=== PATIENT | male | born 1980 | race Caucasian/White ===

== ENCOUNTER 2023-02-21 08:47 | Outpatient (CLI) | payer OTHER, SELFPAY | END 2023-02-21 08:48 | disposition home or self-care (01) | LOC: LONREF 08:50 | PROVIDERS: PCP Family Medicine; Visit Provider Family Medicine | DX: Z00.00 Encounter for general adult medical examination without abnormal findings (principal); Z13.6 Encounter for screening for cardiovascular disorders | CPT/HCPCS: 80061 ==

== ENCOUNTER 2023-12-15 17:01 | Emergency (ER) | payer OTHER, SELFPAY ==
[2023-12-15 17:19] VITALS: BP 131/80; PULSE 83; RESP 18; TEMP 36.9; O2SAT 97; BMI 26.1
--- NOTE | 2023-12-15 17:26 | CRLHL7_ITS ---
For Patients: As a result of the Century Cures Act, medical imaging exams and procedure reports are released immediately into your electronic medical record. You may view this report before your referring provider. If you have questions, please contact your health care provider. Indication: Trauma. Technique: Right knee, 3 views. Comparison: None. Findings/Impression: Bones: Prior lateral tibial plate and screw hardware fixation. Alignment is normal. No displaced fractures or bone lesions. Joint spaces: Tricompartmental degenerative changes. Soft tissues: Unremarkable. Dictated by Aram Kline MD @ 12/15/2023 6:57:55 PM (Electronically Signed)
--- NOTE | 2023-12-15 17:41 | ED.LOWEXIN ---
HPI - Extremity Injury (Lower) General Date Seen: 12/15/23 Chief Complaint: Extremity Pain/Injury, Lower Stated Complaint: Right Knee Pain Time Seen by Provider: 12/15/23 17:02 Source: patient Mode of arrival: ambulatory Limitations: no limitations History of Present Illness HPI Narrative: Patient is a 43-year-old male presenting for right knee pain. 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 Says since the and his sed pain with move it of the knee but this against getting better. He states usually when this happens he will send it again and he will hear another pop and symptoms will improve. That did not happen today. Do this his told to come to the emergency department because he was having difficulty putting pressure on the right leg. Do the injuries do appear G previously it is a large traumatic injury to this leg several years ago requiring surgery. Denies numbness of the leg. Denies pain anywhere else. Related Data Previous Rx's Medication Instructions Recorded methylphenidate HCl 27 mg 27 mg PO QAM #30 tabs 02/21/23 tablet,extended release 24 hr tamsulosin 0.4 mg capsule 0.4 mg PO QHS #30 caps 02/21/23 eszopiclone 3 mg tablet (Lunesta) 3 mg PO .HS #30 tabs 11/26/23 Allergies Allergy/AdvReac Type Severity Reaction Status Date / Time iodine AdvReac Unknown Nausea Verified 02/21/23 08:05 Review of Systems Narrative: Pertinent systems reviewed and negative unless stated in HPI PFSH PFSH Surgical History Status post amputation of right great toe ?Z89.411 - Acquired absence of right great toe (ICD-10) Status post open reduction and internal fixation (ORIF) of fracture ?Z98.890 - Other specified postprocedural states (ICD-10) ?Z87.81 - Personal history of (healed) traumatic fracture (ICD-10) Status post open reduction and internal fixation (ORIF) of fracture ?Z98.890 - Other specified postprocedural states (ICD-10) ?Z87.81 - Personal history of (healed) traumatic fracture (ICD-10) Family History Other Diabetes Social History Smoking Status: Never smoker Little interest or pleasure in doing things: more than half the days Feeling down, depressed, or hopeless: more than half the days Exam Narrative: Exam Narrative: Const: Well-nourished, Well-developed, in mild distress Eyes: PERRL, no conjunctival injection, and symmetrical lids HENT: Atraumatic external nose and ears. Moist mucous membranes. MSK:Extremities w/o deformity, decreased active range of motion right knee secondary to pain, no tenderness around the knee joint Skin: Warm, Dry. No rashes or lesions. Neuro: Normal Muscle tone, No focal neurological deficits. Psych: Awake, Alert, & Oriented x3. Appropriate mood and affect. Const: Vital Signs, click to edit/add: Vital Signs - 24 hr 12/15/23 17:19 Temperature 98.4 F Pulse Rate [Pulse Oximeter] 83 Respiratory Rate 18 Blood Pressure [Ri ght Upper Arm] 131/80 Pulse Oximetry 97 Oxygen Delivery Me thod Room Air Course Vital Signs Vital signs: Initial Vital Signs Temperature 98.4 F 12/15/23 17:19 Temperature Source Temporal Artery Scan 12/15/23 17:19 Pulse Rate 83 12/15/23 17:19 Respiratory Rate 18 12/15/23 17:19 Blood Pressure 131/80 12/15/23 17:19 Blood Pressure Mean 97 12/15/23 17:19 Pulse Oximetry 97 12/15/23 17:19 Oxygen Delivery Method Room Air 12/15/23 17:19 Vital Signs Temperature 98.4 F 12/15/23 17:19 Pulse Rate 83 12/15/23 17:19 Respiratory Rate 18 12/15/23 17:19 Blood Pressure 131/80 12/15/23 17:19 Pulse Oximetry 97 12/15/23 17:19 Oxygen Delivery Method Room Air 12/15/23 17:19 Temperature 98.4 F 12/15/23 17:19 Pulse Rate 83 12/15/23 17:19 Respiratory Rate 18 12/15/23 17:19 Blood Pressure 131/80 12/15/23 17:19 Pulse Oximetry 97 12/15/23 17:19 Oxygen Delivery Method Room Air 12/15/23 17:19 MDM - Extremity Injury (Lower) MDM Narrative Medical decision making narrative: Patient is a 43-year-old male presenting for right knee pain. Symptoms started today. Does not remembering hurting any just noticed the pain started when he tried to get up. He has been having pain and difficulty point wait on the right knee. Has been using crutches. X-rays were ordered of the right knee. They returned showing no concerning abnormalities as reviewed by myself and the radiologist. Considering his history of injury to this knee I will have him follow-up with orthopedics on Sunday if symptoms are persisting. Also be given a knee immobilizer to help. Patient is agreeable to this plan. Imaging Data Right knee x-ray: Radiologist's impression: Bones: Prior lateral tibial plate and screw hardware fixation. Alignment is normal. No displaced fractures or bone lesions. Joint spaces: Tricompartmental degenerative changes. Soft tissues: Unremarkable. Dictated by Aram Kline MD @ 12/15/2023 6:57:55 PM Discharge Plan Discharge Clinical Impression: Acute knee pain Qualifiers: Laterality: right Qualified Code(s): M25.561 - Pain in right knee Patient Disposition: Home, Self-Care Condition: Stable Instructions: Knee Pain (ED) Additional Instructions: Follow-up with orthopedics on Sunday if symptoms are persisting. Take Tylenol and ibuprofen for pain. Return for new worsening symptoms. Use the knee immobilizer when ambulating if it is helping with symptoms Activity Level: No Restrictions Discharge Diet: Regular Prescriptions: No Action tamsulosin 0.4 mg capsule 0.4 mg PO QHS Qty: 30 11RF methylphenidate HCl 27 mg tablet extended release 24hr 27 mg PO QAM Qty: 30 0RF eszopiclone [Lunesta] 3 mg tablet 3 mg PO .HS Qty: 30 2RF Follow Up/Referrals: Taran Cowan MD [Primary Care Provider] - Stand Alone Forms: [facility] Info Instructions
== END 2023-12-15 19:40 | disposition home or self-care (01) ==
PROVIDERS: Emergency Provider Student in an Organized Health Care Education/Training Program; PCP Family Medicine
DX: M25.561 Pain in right knee (principal)
CPT/HCPCS: 73562; 99282; 99283

== ENCOUNTER 2023-12-31 15:19 | Outpatient (CLI) | payer OTHER, SELFPAY ==
--- NOTE | 2023-12-31 15:30 | MR_ITS ---
[address] [address] Phone:?[phone] Fax:?[phone] Referring Physician Information: Arsen Arevalo M.D. [id number] [id number] Phone:?[phone] Fax:?[phone] Patient:Rafita Barton D.O.B:?1980 Sex:?Male Phone:?[phone] [facility] MRN:?[id number] Exam Date:?12/31/2023 EXAM: MRI of the RIGHT KNEE, without contrast CLINICAL HISTORY: Ongoing right knee pain. Evaluate for loose body. History of previous right tibial surgery. COMPARISONS: Plain radiographs 12/15/2023. TECHNICAL: MR sequences of the right knee: sagittals: PD, STIR coronals: PD, STIR axials: PD, STIR CONTRAST: None SEDATION: None FINDINGS: Bones: There are surgical changes status post lateral plate and screw fixation of the proximal tibia. Patellofemoral joint: Cartilage: Predominantly intact. Retinacula: The medial and lateral retinacula are intact. Fat pads: Edema-like signal within the superolateral portion of the infrapatellar fat pad is associated with patellar tendon-lateral femoral condyle friction/patellar maltracking. The Insall Salvati index measures 1.24. The lateral trochlear inclination angle is within normal limits. The tibial tubercle to trochlear groove distance measures 1.2 cm. Knee joint: Effusion: Small right knee joint effusion. Popliteal cyst: None. Intra-articular bodies: None. Posteromedial corner: The semimembranosus and pes anserine tendons are intact. Medial compartment: Medial meniscus: No medial meniscal tear is seen although evaluation is compromised by metallic hardware artifact. Cartilage: There is a 1.0 x 1.0 cm area of full-thickness chondral loss over the superior aspect of the posterior nonweightbearing portion of the medial femoral condyle with minimal subjacent subchondral cystic change. Lateral compartment: Lateral meniscus: There is a 1.0 x 0.8 x 0.8 cm parameniscal cyst within the anterior aspect of the lateral compartment. The lateral meniscus cannot be adequately evaluated because of marked metallic hardware artifact. Cartilage: An approximately 1.0 x 1.0 cm area of full-thickness chondral loss over the posterior weightbearing portion of the lateral femoral condyle and a smaller focus of fullness chondral loss over the posterior nonweightbearing portion of the lateral femoral condyle with associated subchondral cystic changes are present although it must be noted that evaluation of the lateral compartment cartilage is severely compromised by marked metallic hardware artifact. There is suspected subchondral bone plate offset of the lateral tibial plateau although it must be noted that evaluation is severely compromised by marked metallic hardware artifact. Ligaments: Anterior cruciate ligament: Intact. Posterior cruciate ligament: Intact. Medial collateral ligament: There is Khari-Stieda. No acute injury is seen. Posterior oblique ligament: Intact. Fibular collateral ligament: Intact. Posterolateral corner: The distal biceps femoris tendon, popliteus tendon, and popliteus muscle are intact. The iliotibial band, popliteofibular ligament, and arcuate ligament are obscured by metallic hardware artifact. Extensor mechanism: Patellar tendon: Intact. Quadriceps tendon: Intact. IMPRESSION: 1. Surgical changes status post lateral plate and screw fixation of the proximal tibia, which results in marked metallic hardware artifact that obscures adjacent structures. 2. 1.0 x 0.8 x 0.8 cm parameniscal cyst within the anterior aspect of the lateral compartment. The lateral meniscus cannot be adequately evaluated because of marked metallic hardware artifact. Approximately 1.0 x 1.0 cm area of full- thickness chondral loss over the posterior weightbearing portion of the lateral femoral condyle and a smaller focus of fullness chondral loss over the posterior nonweightbearing portion of the lateral femoral condyle with associated subchondral cystic changes are present although it must be noted that evaluation of the lateral compartment cartilage is severely compromised by marked metallic hardware artifact. There is suspected subchondral bone plate offset of the lateral tibial plateau although it must be noted that evaluation is severely compromised by marked metallic hardware artifact. 3. 1.0 x 1.0 cm area of full-thickness chondral loss over the superior aspect of the posterior nonweightbearing portion of the medial femoral condyle with minimal subjacent subchondral cystic change. 4. 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 No acute ligamentous injury. 5. Edema-like signal within the superolateral portion of the infrapatellar fat pad is associated with patellar tendon-lateral femoral condyle friction/patellar maltracking. Upper limits of normal Insall Salvati index. The lateral trochlear inclination angle and tibial tubercle to trochlear groove distance measurements are within normal limits. 6. Small right knee joint effusion. 7. No evidence of medial meniscal tear although evaluation is compromised by metallic hardware artifact. No intra-articular body is identified although it must be noted that evaluation is compromised by marked metallic hardware artifact. RCB Electronically signed on 01/01/2024 7:13:00 AM by Neto Arvizu M.D.
== END 2023-12-31 15:20 | disposition home or self-care (01) ==
PROVIDERS: PCP Family Medicine; Visit Provider Orthopaedic Surgery Sports Medicine
DX: M25.561 Pain in right knee (principal); S83.282A Other tear of lateral meniscus, current injury, left knee, initial encounter; M25.461 Effusion, right knee; M24.00 Loose body in unspecified joint
CPT/HCPCS: 73721

== ENCOUNTER 2024-02-13 06:52 | Day surgery (SDC) | payer OTHER, SELFPAY ==
[2024-02-13] VITALS (15 sets, daily range): BP systolic 96–125; BP diastolic 55–83; PULSE 49–80; RESP 16–24; TEMP 36.1–36.7; O2SAT 95–100; BMI 28.1
[2024-02-13] MEDS: LACTATED RINGERS 1000 ML 1,000 ML 100 ML IV (07:42)
[2024-02-13] MEDS: SODIUM CHLORIDE 0.9 % (FLUSH) 10 ML SYRINGE IVF (07:42)
--- NOTE | 2024-02-13 07:59 | W.ANESCHARGE ---
Anesthesia Charges Start Date/Time Anesthesia Start Date: 02/13/24 Anesthesia Start Time: 07:44 Stop Date/Time Anesthesia Stop Date: 02/13/24 Anesthesia Stop Time: 08:52
[2024-02-13] MEDS: ROPIVACAINE 0.5% 30 ML 150 MG INJECTION (08:41)
--- NOTE | 2024-02-13 08:45 | W.PM.H&PU ---
History & Physical Update History & Physical Update H&P Reviewed and patient assessed: No changes noted
--- NOTE | 2024-02-13 08:49 | P.ORPRC_ITS ---
Procedure Note Date of procedure: 02/13/24 Procedure: PREOPERATIVE DIAGNOSIS: 1. Right knee lateral meniscus tear POSTOPERATIVE DIAGNOSIS: 1. Right knee lateral meniscus tear 2. Right knee synovitis anterior and lateral compartment PROCEDURE: 1. Right knee arthroscopic total lateral meniscectomy 2. Right knee arthroscopic limited synovectomy SURGEON: Arsen Arevalo M.D. MOUSE BREEDER: KIM Cortez. Of note, an undertaker assistant was critical for this case to aid in patient positioning, knee manipulation, instrument exchange, and closure. ANESTHESIA: Spinal EBL: 2ml TOURNIQUET: 30 min at 300 torr COMPLICATIONS: None evident INDICATIONS: The patient is a pleasant 43-year-old male who sustained a lateral tibial plateau fracture in the remote past. He underwent ORIF elsewhere. He did okay for number of years. Unfortunately, in recent time he has developed increasing pain and effusion/swelling about the right knee. An MRI was obtained after clinical suspicion of a lateral meniscus tear. However, the MRI was difficult to clearly identify due to the metal artifact. However, clinical suspicion was high for lateral meniscus tear. Given his persistent pain and generalized dysfunction, surgery was indicated. FINDINGS: Complex tearing of the anterior horn, midbody, and posterior horn lateral meniscus. Previous sutures from the prior repair during the lateral tibial plateau ORIF were encountered. Upon minor probing, these were clearly unstable and in fact of no value for tissue security purposes. 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 Grade 3 chondromalacia trochlear groove and patellar median ridge. Medial meniscus showed minimal central meniscal fraying and tearing. DESCRIPTION OF PROCEDURE: After a thorough discussion of risks, benefits, and alternatives, the patient was brought to the operating room and placed upon the operating table. Induction of anesthesia was undertaken as previously noted. 2g iv Ancef was administered within 1 hr of incision preoperatively. Appropriate time-out was performed identifying proper patient, site, and procedure. The right lower extremity was prepped and draped in the appropriate sterile fashion using ChloraPrep. The limb was exsanguinated and tourniquet inflated. Anterolateral and anteromedial portals were established with an 11 blade, and a diagnostic arthroscopy was performed. This identified the findings as noted above. Following the diagnostic arthroscopy, a total lateral menisectomy was performed with the combination of basket forceps, motorized shaver and Lenorah cautery. In addition, the shaver and cautery were utilized for a limited synovectomy in the anterior and lateral compartments of this right knee given the significant synovitis encountered. The foreign body/sutures were also removed with the shaver and did not require significant increased work. The popliteus was visualized in the posterolateral corner of the knee and found to be intact. Given the parameniscal cyst seen on MRI, Lenorah cautery was utilized to help seal the tissues following the lateral meniscectomy. At this stage, the shaver was reinserted into the suprapatellar pouch and all remaining meniscal debris was evacuated. Instruments were removed, excess fluid was drained, and closure performed with 4-0 Monocryl with Steri-Strips. Dressings were applied, the tourniquet deflated, and the patient was awoken from anesthesia and transferred to the PACU in stable condition. PLAN: 1. Weightbear as tolerated operative extremity. Crutch / walker ambulation assistance PRN. 2. Ice, acetominophen and/or ibuprofen, and oxycodone for pain as needed. 3. Knee range of motion and quad sets/straight leg raise regularly 4. Follow up with PA visit in 1-2 weeks for a wound check and possibly to initiate physical therapy.
--- NOTE | 2024-02-13 08:55 | W.ANESCHARGE ---
Anesthesia Charges Start Date/Time Anesthesia Start Date: 02/13/24 Anesthesia Start Time: 07:44 Stop Date/Time Anesthesia Stop Date: 02/13/24 Anesthesia Stop Time: 08:52
== END 2024-02-13 11:00 | disposition home or self-care (01) ==
PROVIDERS: PCP Family Medicine; Visit Provider Orthopaedic Surgery Sports Medicine
PROC: (CPT 29870; principal; 2024-02-13 08:00)
DX: S83.271A Complex tear of lateral meniscus, current injury, right knee, initial encounter (principal); M65.861 Other synovitis and tenosynovitis, right lower leg
CPT/HCPCS: 29881; 29875; 01400; J2250; J2704; J2795; J3010; J7120